=== PATIENT | male | born 1980 | race Caucasian/White ===

== ENCOUNTER 2022-08-03 12:03 | Emergency (ER) | payer OTHER, SELFPAY ==
[2022-08-03 12:13] VITALS: BP 149/88; PULSE 70; RESP 16; TEMP 36.3; O2SAT 99
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
[2022-08-03] MEDS: TETANUS,DIPHTHERIA,AC PERTUSSIS ADULT (0.5 ML) BOOSTRIX IM (13:55)
== END 2022-08-03 14:03 | disposition home or self-care (01) ==
PROVIDERS: Emergency Provider Nurse Practitioner
DX: H61.002 Unspecified perichondritis of left external ear (principal); Z23 Encounter for immunization
CPT/HCPCS: 87070; 87205; 90471; 90715; 99213; G0463

== ENCOUNTER 2022-08-12 22:47 | Emergency (ER) | payer OTHER, SELFPAY ==
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
[2022-08-12 22:53] VITALS: BP 156/92; PULSE 82; RESP 18; TEMP 36.8; O2SAT 100
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
[2022-08-12] MEDS: LIDOCAINE HCL 1% LOCAL INJ 10 ML VIAL (23:32)
[2022-08-12 23:42] VITALS: BP 139/89; PULSE 69; RESP 20; TEMP 36.7; O2SAT 100
== END 2022-08-12 23:44 | disposition home or self-care (01) ==
PROVIDERS: Emergency Provider Emergency Medicine
DX: Z18.81 Retained glass fragments (principal)
CPT/HCPCS: 10120; 70360; 99283